=== PATIENT | female | born 1975 | race Caucasian/White ===

== ENCOUNTER → 2017-10-19 | Day surgery (SDC) | payer OTHER ==
--- NOTE | 2017-10-22 16:08 | PATH ---
Surgical Pathology Report Patient Name: JOHN LOGAN [facility]. Rec. #: [id number] /Age/Gender: 1975 (Age: 41) / F Account: [id number] Location: [place] Pathology Taken: 10/19/2017 Received: 10/19/2017 Reported: 10/22/2017 Physicians: Basim Pratt M.D. 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 Electronically Signed Jen Navarrete M.D. Gross Description Received in formalin labeled "left breast biopsy 4:00, 5 cmfn," is a 1.6 x 1.0 x 0.2 cm aggregate of multiple smith-yellow, irregular to cylindrical portions of fibroadipose tissue. The formalin is filtered and the specimen is entirely submitted in one cassette. Time to formalin fixation: 2 minutes Total formalin fixation time: Approximately 6 hours. /10/19/2017 saudi10/19/2017
== END | disposition home or self-care (01) ==
LOC: FRADUS-SUR 12:36
PROVIDERS: ATTEND Nurse Practitioner
PROC: 0HBU3ZX Excision of Left Breast, Percutaneous Approach, Diagnostic (ICD-10-PCS; principal; 2017-10-19)
DX: D24.2 Benign neoplasm of left breast (principal); N63.23 Unspecified lump in the left breast, lower outer quadrant
CPT/HCPCS: 19083; 77065-TC; 87899; 88305-TC; A4648